=== PATIENT | male | born 1975 | race American Indian/Alaskan Native ===

== ENCOUNTER 2021-08-29 08:51 | Emergency (ER) | payer OTHER ==
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
[2021-08-29 11:57] VITALS: BP 172/97
== END 2021-08-29 11:57 | disposition home or self-care (01) ==
LOC: ED 08:51
DX: S39.011A Strain of muscle, fascia and tendon of abdomen, initial encounter (principal); S00.83XA Contusion of other part of head, initial encounter; X58.XXXA Exposure to other specified factors, initial encounter; Y93.89 Activity, other specified; Y92.89 Other specified places as the place of occurrence of the external cause; Y99.8 Other external cause status
CPT/HCPCS: 99283